=== PATIENT | female | born 1960 | race Caucasian/White ===

== ENCOUNTER 2019-03-16 10:55 | Outpatient (REF) | payer MEDICAID, SELFPAY ==
[2019-03-16 21:28] LABS: Anion Gap 8.9 mmol/L (3-11); BUN 18 mg/dL (7-18); CO2 28.1 mmol/L (21.0-32.0); Calcium 9.2 mg/dL (8.5-10.1); Chloride 102 mmol/L (98-107); Glucose 99 mg/dL (70-100); Potassium 3.8 mmol/L (3.5-5.1); Sodium 139 mmol/L (136-145)
== END 2019-03-16 11:15 ==
LOC: NCHCN 10:55
PROVIDERS: PCP Internal Medicine; Visit Provider Internal Medicine
DX: R60.9 Edema, unspecified (principal)
CPT/HCPCS: 80048

== ENCOUNTER 2019-04-30 15:17 | Outpatient (REF) | payer MEDICAID, SELFPAY ==
--- NOTE | 2019-04-30 14:30 | PAPFT_PTH ---
PATIENT: Cee Akers LOC: [facility]#:[id number] AGE/SX: 58/F ROOM: RE04/30/[address]: Aryan Villatoro : 1960 BED: DIS: 04/30/2019 SPEC #: [id number] RECD: 05/03/19 12:18 STATUS: REZA REQ #: [id number] LE: 04/30/19 14:[address]: Aryan Villatoro DEPT: [facility] Cytology RECD BY: Rhiannon Kaur Tissues: 1 - CX/ENDOCX FOR PAP SMEARS Procedures: PAP THIN PREP/[facility] Screening HPV DNA PROBE Comments: [id number] (CHLAMYDIA/GC)
[2019-05-04 15:29] LABS: Chlamydia Result Negative (Negative)
[2019-05-04 15:45] LABS: GC Result Negative (Negative)
[2019-05-10 09:38] LABS: Chlamydia Result Negative (Negative)
[2019-05-10 09:40] LABS: GC Result Negative (Negative)
== END 2019-04-30 15:37 ==
LOC: NCHCN 15:17
PROVIDERS: PCP Internal Medicine; Visit Provider Internal Medicine
DX: Z12.4 Encounter for screening for malignant neoplasm of cervix (principal); Z11.3 Encounter for screening for infections with a predominantly sexual mode of transmission; Z01.419 Encounter for gynecological examination (general) (routine) without abnormal findings
CPT/HCPCS: 87491; 87591; 88142; 87624

== ENCOUNTER 2019-12-24 13:19 | Outpatient (REF) | payer MEDICAID, SELFPAY ==
[2019-12-24 20:55] LABS: HCT 45.2 % (36.0-46.0); HGB 15.7 g/dL (12.0-15.5); Mean Corp. HGB Concentration 34.7 g/dL (32.0-36.0); Mean Corpuscular Hemoglobin 31.3 pg (27.0-33.0); Mean Corpuscular Volume 90.2 fL (80-95); Mean Platelet Volume 10.8 fL (8.0-11.0); Platelet Count 177 x1000/uL (130-400); RBC 5.01 m/cumm (4.00-5.20); RBC Distribution Width 14.2 % (11.7-14.6); White Blood Cell Count 6.83 k/cumm (4.4-10.8)
[2019-12-24 21:50] LABS: ALT 22 U/L (14-59); AST 18 U/L (15-37); Albumin 4.2 g/dL (3.4-5.0); Alkaline Phosphatase 33 U/L (46-116); Anion Gap 10.2 mmol/L (3-11); BUN 23 mg/dL (7-18); Bilirubin, Total 0.5 mg/dL (0.2-1.0); CO2 26.8 mmol/L (21.0-32.0); CREATININE 0.69 mg/dL (0.55-1.02); Calcium 9.4 mg/dL (8.5-10.1); Chloride 99 mmol/L (98-107); Glucose 106 mg/dL (74-106); Lipase 100 U/L (73-393); Potassium 3.2 mmol/L (3.5-5.1); Sodium 136 mmol/L (136-145)
== END 2019-12-24 13:39 ==
LOC: NCHCN 13:19
PROVIDERS: PCP Internal Medicine; Visit Provider Internal Medicine
DX: R11.0 Nausea (principal); R63.4 Abnormal weight loss
CPT/HCPCS: 80053; 83690; 85027

== ENCOUNTER 2019-12-27 16:06 | Outpatient (REF) | payer MEDICAID, SELFPAY ==
[2020-01-02 12:23] LABS: SARS-CoV-2 RNA Undetected (Undetected); SARS-CoV-2 Specimen Source Nasopharynx
== END 2019-12-27 16:26 ==
LOC: NCHCN 16:06
PROVIDERS: PCP Internal Medicine; Visit Provider Nurse Practitioner Family
DX: Z20.828 Contact with and (suspected) exposure to other viral communicable diseases (principal)
CPT/HCPCS: U0003

== ENCOUNTER 2020-09-28 12:53 | Outpatient (REF) | payer MEDICAID, SELFPAY ==
--- NOTE | 2020-09-29 11:50 | PAPFT_PTH ---
PATIENT: Cee Akers LOC: [facility]#:[id number] AGE/SX: 59/F ROOM: RE09/28/[address]: Aryan Villatoro : 1960 BED: DIS: 09/28/2020 SPEC #: [id number] RECD: 09/29/20 12:54 STATUS: REZA REKartik #: [id number] LE: 09/29/20 11:[address]: Aryan Villatoro DEPT: [facility] Cytology RECD BY: Ashley Sidhu Tissues: 1 - CX/ENDOCX FOR PAP SMEARS Procedures: PAP THIN PREP/UVM Screening HPV DNA PROBE Comments: [id number]
== END 2020-09-28 12:54 | disposition home or self-care (01) ==
LOC: NCHCN 12:53
PROVIDERS: PCP Internal Medicine; Visit Provider Internal Medicine
DX: Z12.4 Encounter for screening for malignant neoplasm of cervix (principal); Z01.419 Encounter for gynecological examination (general) (routine) without abnormal findings; Z00.00 Encounter for general adult medical examination without abnormal findings; Z11.51 Encounter for screening for human papillomavirus (HPV)
CPT/HCPCS: 88142; 87624

== ENCOUNTER 2020-12-04 18:34 | Outpatient (REF) | payer MEDICAID, SELFPAY ==
[2020-12-04 21:49] LABS: Anion Gap 9.9 mmol/L (3-11); BUN 15 mg/dL (7-18); CO2 29.1 mmol/L (21.0-32.0); CREATININE 0.8 mg/dL (0.55-1.02); Calcium 9.4 mg/dL (8.5-10.1); Chloride 100 mmol/L (98-107); Glucose 88 mg/dL (74-106); Potassium 3.2 mmol/L (3.5-5.1); Sodium 139 mmol/L (136-145)
== END 2020-12-04 18:35 | disposition home or self-care (01) ==
LOC: NCHCN 18:34
PROVIDERS: PCP Internal Medicine; Visit Provider Internal Medicine
DX: R60.0 Localized edema (principal); F17.200 Nicotine dependence, unspecified, uncomplicated; M54.89 Other dorsalgia
CPT/HCPCS: 80048

== ENCOUNTER 2021-03-05 15:18 | Outpatient (REF) | payer MEDICAID, SELFPAY ==
[2021-03-05 21:05] LABS: Potassium 3.5 mmol/L (3.5-5.1)
== END 2021-03-05 15:19 | disposition home or self-care (01) ==
LOC: NCHCN 15:18
PROVIDERS: PCP Internal Medicine; Visit Provider Internal Medicine
DX: F41.9 Anxiety disorder, unspecified (principal); M54.89 Other dorsalgia; Z59.9 Problem related to housing and economic circumstances, unspecified
CPT/HCPCS: 84132

== ENCOUNTER 2021-08-27 15:57 | Outpatient (REF) | payer MEDICAID, SELFPAY ==
[2021-08-27 15:12] LABS: Anion Gap 9.6 mmol/L (3-11); BUN 13 mg/dL (7-18); CO2 27.4 mmol/L (21.0-32.0); CREATININE 0.8 mg/dL (0.55-1.02); Calcium 9.3 mg/dL (8.5-10.1); Chloride 100 mmol/L (98-107); Glucose 109 mg/dL (74-106); Magnesium 2.4 mg/dL (1.8-2.4); Potassium 3.4 mmol/L (3.5-5.1); Sodium 137 mmol/L (136-145); Vitamin B12 986 pg/mL (193-986)
[2021-08-27 17:56] LABS: Creatine Kinase 48 U/L (26-192)
== END 2021-08-27 15:58 | disposition home or self-care (01) ==
LOC: NCHCN 15:57
PROVIDERS: PCP Internal Medicine; Visit Provider Internal Medicine
DX: M79.10 Myalgia, unspecified site (principal); R20.2 Paresthesia of skin
CPT/HCPCS: 80048; 82550; 82607; 83735

== ENCOUNTER 2022-10-01 15:21 | Outpatient (REF) | payer MEDICAID, SELFPAY ==
[2022-10-01 21:14] LABS: HCT 39.8 % (36.0-46.0); MCH 30.1 pg (27.0-33.0); MCHC 32.7 % (32.0-36.0); MCV 92 fL (80-95); MPV 10.4 fL (8.0-11.0); Platelet Count 193 10^3/uL (130-400); RBC 4.32 10^6/uL (3.93-5.22); RDW 13.2 % (11.7-14.6); RDW-SD 45.4 fL; WBC 3.72 10^3/uL (4.4-10.8)
[2022-10-01 21:37] LABS: ALT 32 U/L (14-59); AST 17 U/L (15-37); Alkaline Phosphatase 31 U/L (46-116); Anion Gap 9.3 mmol/L (3-11); BUN 17 mg/dL (7-18); Bilirubin, Total 0.3 mg/dL (0.2-1.0); CO2 23.7 mmol/L (21.0-32.0); CREATININE 0.9 mg/dL (0.55-1.02); Calcium 8.8 mg/dL (8.5-10.1); Chloride 109 mmol/L (98-107); Estimated GFR 73.64 (mL/min/1.73m2); Glucose 83 mg/dL (74-106); Potassium 4.2 mmol/L (3.5-5.1); Sodium 142 mmol/L (136-145); TSH (W/Ref FT4) 1.79 uIU/mL (0.36-3.74); Total Protein 6.6 g/dL (6.4-8.2)
== END 2022-10-01 15:22 | disposition home or self-care (01) ==
LOC: NCHCN 15:21
PROVIDERS: PCP Internal Medicine; Visit Provider Internal Medicine
DX: N95.1 Menopausal and female climacteric states (principal); R14.0 Abdominal distension (gaseous); F41.8 Other specified anxiety disorders
CPT/HCPCS: 80053; 85027; 84443

== ENCOUNTER 2022-12-30 13:45 | Outpatient (REF) | payer MEDICAID, SELFPAY ==
[2022-12-30 21:29] LABS: Absolute Basophil Count 0.04 10^3/uL (0.0-0.2); Absolute Eosinophil Count 0.02 10^3/uL (0.0-0.7); Absolute Lymphocyte Count 1.19 10^3/uL (1.2-3.4); Absolute Monocyte Count 0.24 10^3/uL (0.1-0.8); Absolute Neutrophil Count 1.61 10^3/uL (1.2-6.7); Basophils % 1.3; Eosinophils % 0.6; HCT 41.1 % (36.0-46.0); HGB 13.6 g/dL (11.2-15.7); Lymphocytes % 38.4; MCH 31.2 pg (27.0-33.0); MCHC 33.1 % (32.0-36.0); MCV 94 fL (80-95); MPV 10.6 fL (8.0-11.0); Monocytes % 7.7; Platelet Count 224 10^3/uL (130-400); RBC 4.36 10^6/uL (3.93-5.22); RDW 13.3 % (11.7-14.6); RDW-SD 46.7 fL
[2023-01-01 11:19] LABS: Hepatitis C Ab w Rflx HCV PCR Negative (Negative)
[2023-01-01 13:12] LABS: HIV-1/2 Ag & Ab Screen Negative (Negative)
== END 2022-12-30 13:46 | disposition home or self-care (01) ==
LOC: NCHCN 13:45
PROVIDERS: PCP Internal Medicine; Visit Provider Internal Medicine
DX: Z00.00 Encounter for general adult medical examination without abnormal findings (principal); M79.605 Pain in left leg; F41.9 Anxiety disorder, unspecified; R60.9 Edema, unspecified; R63.4 Abnormal weight loss; M54.50 Low back pain, unspecified; G89.29 Other chronic pain
CPT/HCPCS: 86803; 87389; 85025

== ENCOUNTER 2023-03-31 16:18 | Outpatient (REF) | payer MEDICAID, SELFPAY ==
[2023-03-31 16:17] LABS: HCT 38.8 % (36.0-46.0); HGB 12.4 g/dL (11.2-15.7); MCH 31.4 pg (27.0-33.0); MCV 98 fL (80-95); MPV 10.6 fL (8.0-11.0); Platelet Count 193 10^3/uL (130-400); RBC 3.95 10^6/uL (3.93-5.22); RDW 12.3 % (11.7-14.6); RDW-SD 44.7 fL; WBC 3.02 10^3/uL (4.4-10.8)
[2023-04-01 10:28] LABS: Absolute Basophil Count 0.05 10^3/uL (0.0-0.2); Absolute Eosinophil Count 0.04 10^3/uL (0.0-0.7); Absolute Lymphocyte Count 1.15 10^3/uL (1.2-3.4); Absolute Monocyte Count 0.37 10^3/uL (0.1-0.8); Absolute Neutrophil Count 1.57 10^3/uL (1.2-6.7); Basophils % 1.6; Eosinophils % 1.3; Lymphocytes % 36.2; Monocytes % 11.6; Neutrophils % 49.3
== END 2023-03-31 16:19 | disposition home or self-care (01) ==
LOC: NCHCN 16:18
PROVIDERS: PCP Internal Medicine; Visit Provider Internal Medicine
DX: M54.89 Other dorsalgia (principal); M79.605 Pain in left leg; D72.810 Lymphocytopenia
CPT/HCPCS: 85027; 85007

== ENCOUNTER 2024-07-23 21:07 | Outpatient (REF) | payer MEDICAID, SELFPAY ==
[2024-07-23 21:32] LABS: Abs Immature Grans 0.01 10^3/uL (0.0-0.06); Absolute Basophil Count 0.07 10^3/uL (0.0-0.2); Absolute Eosinophil Count 0.03 10^3/uL (0.0-0.7); Absolute Monocyte Count 0.41 10^3/uL (0.1-0.8); Absolute Neutrophil Count 3.05 10^3/uL (1.2-6.7); Basophils % 1.3 %; Eosinophils % 0.6 %; HCT 44.6 % (36.0-46.0); HGB 15.6 g/dL (11.2-15.7); Immature Grans % 0.2 %; Lymphocytes % 33.5 %; MCH 30.6 pg (27.0-33.0); MCV 88 fL (80-95); MPV 10.6 fL (8.0-11.0); Monocytes % 7.6 %; Neutrophils % 56.8 %; Platelet Count 236 10^3/uL (130-400); RBC 5.09 10^6/uL (3.93-5.22); RDW 13.5 % (11.7-14.6); RDW-SD 43.8 fL; WBC 5.37 10^3/uL (4.4-10.8)
[2024-07-23 22:10] LABS: ALT 32 U/L (14-59); AST 28 U/L (15-37); Albumin 4.7 g/dL (3.4-5.0); Alkaline Phosphatase 45 U/L (46-116); Anion Gap 8.7 mmol/L (3-11); BUN 17 mg/dL (7-18); Bilirubin, Total 0.53 mg/dL (0.2-1.0); CO2 32.3 mmol/L (21.0-32.0); CREATININE 1.1 mg/dL (0.55-1.02); Calculated LDL 170 mg/dL (<100); Chloride 92 mmol/L (98-107); Cholesterol 269 mg/dL (<200); Estimated GFR 57.17 (mL/min/1.73m2); Glucose 94 mg/dL (74-106); HDL Cholesterol 89 mg/dL (40-60); Magnesium 2.1 mg/dL (1.8-2.4); Sodium 133 mmol/L (136-145); Total Protein 7.8 g/dL (6.4-8.2); Triglyceride 52 mg/dL (<150); Vitamin D 25 Total 59.4 ng/mL (30-100)
[2024-07-23 22:16] LABS: Folate > 20.0 ng/mL (8.6-20.0); Potassium 2.7 mmol/L (3.5-5.1); Vitamin B12 > 2000 pg/mL (193-986)
[2024-07-23 22:27] LABS: Creatine Kinase 244 U/L (26-192)
--- NOTE | 2024-07-24 11:07 | NUR.NOTE ---
Accessed Pt chart to print the lab results for [facility]. Pt is in their ER now and they do not want to draw duplicate labs. Faxed to [phone]
[2024-07-26 10:36] LABS: HIV-1/2 Ag & Ab Screen Negative (Negative)
[2024-07-26 10:46] LABS: Hepatitis C Ab w Rflx HCV PCR Negative (Negative)
[2024-07-26 11:53] LABS: Syphilis Serology (RPR) Negative (Negative)
[2024-07-26 12:07] LABS: Chlamydia Result Negative (Negative); GC Result Negative (Negative)
== END 2024-07-23 21:08 | disposition home or self-care (01) ==
LOC: NCHCN 21:07
PROVIDERS: PCP Internal Medicine; Visit Provider Family Medicine
DX: Z11.3 Encounter for screening for infections with a predominantly sexual mode of transmission (principal); R25.2 Cramp and spasm; Z13.220 Encounter for screening for lipoid disorders; E46 Unspecified protein-calorie malnutrition
CPT/HCPCS: 80053; 80061; 82306; 82550; 86803; 87389; 87491; 87591; 82607; 82746; 83735; 85025; 86592

== ENCOUNTER 2024-07-26 18:10 | Outpatient (REF) | payer MEDICAID, SELFPAY ==
[2024-07-26 21:40] LABS: Anion Gap 5.6 mmol/L (3-11); BUN 21 mg/dL (7-18); CO2 31.4 mmol/L (21.0-32.0); Chloride 99 mmol/L (98-107); Creatine Kinase 249 U/L (26-192); Estimated GFR 64.09 (mL/min/1.73m2); Glucose 109 mg/dL (74-106); Potassium 3.3 mmol/L (3.5-5.1); Sodium 136 mmol/L (136-145)
== END 2024-07-26 18:11 | disposition home or self-care (01) ==
LOC: NCHCN 18:10
PROVIDERS: PCP Family Medicine; Visit Provider Family Medicine
DX: E87.6 Hypokalemia (principal)
CPT/HCPCS: 80048; 82550

== ENCOUNTER 2024-10-25 14:05 | Outpatient (REF) | payer MEDICAID, SELFPAY ==
[2024-10-25 15:35] LABS: Anion Gap 6.1 mmol/L (3-11); BUN 47 mg/dL (7-18); CO2 29.9 mmol/L (21.0-32.0); CREATININE 1.2 mg/dL (0.55-1.02); Chloride 100 mmol/L (98-107); Creatine Kinase 144 U/L (26-192); Glucose 98 mg/dL (74-106); Potassium 3.4 mmol/L (3.5-5.1); Sodium 136 mmol/L (136-145)
[2024-10-25 15:36] LABS: C-Reactive Protein < 0.50 mg/dL (<or=0.5)
[2024-10-26 15:29] LABS: ANA Interpretation Negative (Negative)
== END 2024-10-25 14:06 | disposition home or self-care (01) ==
LOC: NCHCN 14:05
PROVIDERS: PCP Family Medicine; Visit Provider Family Medicine
DX: E87.6 Hypokalemia (principal); R74.8 Abnormal levels of other serum enzymes
CPT/HCPCS: 80048; 82550; 86038; 86140

== ENCOUNTER 2024-12-25 10:31 | Emergency (ER) | payer MEDICAID, SELFPAY ==
[2024-12-25 10:42] VITALS: BP 80/50; PULSE 101; RESP 18; TEMP 36.5; O2SAT 98
--- NOTE | 2024-12-25 11:00 | DI.RAD_ITS ---
Exam(s) XR LUMBAR SPINE COMPLETE EXAM: XR LUMBAR SPINE COMPLETE CLINICAL HISTORY: fall, pain. TECHNIQUE: 2D digital imaging was performed. Five views performed upright. COMPARISON: CR LUMBAR SPINE COMPLETE from 03/10/2015 FINDINGS: BONES: No fracture or destructive lesion. Vertebral body heights are maintained. There is posterior fusion hardware extending from L3 through L5. There is again noted to be sacralization of L5. DISKS: Intervertebral disc spaces are maintained. ALIGNMENT: There is a slight dextroscoliosis centered at T12-L1. SOFT TISSUE: Normal. IMPRESSION: Stable post surgical changes. No acute abnormality. The preliminary [facility] report was reviewed. DATA REPOSITORY: RADIATION DOSE DELIVERED:
--- NOTE | 2024-12-25 11:00 | DI.RAD_ITS ---
Exam(s) XR CERVICAL SP ZAIDI TRAUMA 2-3V EXAM: XR CERVICAL SP ZAIDI TRAUMA 2-3V CLINICAL HISTORY: fall. pain. TECHNIQUE: 2D digital imaging was performed. Three views. COMPARISON: No exams were available for comparison FINDINGS: BONES: No fracture or destructive lesion. Vertebral bodies are unremarkable. DISKS: Intervertebral disc spaces are maintained. ALIGNMENT: Cervical spinal alignment is within normal limits. The odontoid and atlantoaxial articulations are normal. SOFT TISSUE: Normal. The lung apices are clear. IMPRESSION: Unremarkable radiographs of the cervical spine. The preliminary [facility] report was reviewed. DATA REPOSITORY: RADIATION DOSE DELIVERED:
[2024-12-25] MEDS: Lidocaine 5% Patch 1 PATCH TP (11:20)
--- NOTE | 2024-12-25 12:30 | W.ED.GENAD ---
Discharge Plan Disposition Patient Disposition: Eloped Discharge Details Clinical Impression: Acute on chronic back pain Primary Care Provider: Mary Pepper ED Provider: Armand Stanton Home Meds and New Rx's Prescriptions: No Action potassium chloride 10 mEq capsule, extended release 20 meq PO DAILY lidocaine HCl 3 % cream 1 applic topical QID oxycodone 10 mg tablet 10 mg PO 6X/DAY PRN sennosides [Natural Senna Laxative] 8.6 mg tablet 8.6 mg PO BID triamterene-hydrochlorothiazid 37.5-25 mg capsule 1 cap PO DAILY chlorhexidine gluconate 0.12 % mouthwash 15 ml mucous membrane DAILY triamcinolone acetonide 0.1 % cream 1 applic topical BID venlafaxine [Effexor XR] 37.5 MG capsule,extended release 24hr 37.5 mg PO DAILY clonazepam 1 MG tablet 1 mg PO HS PRN pramipexole [Mirapex] 0.25 MG tablet 0.25 mg PO HS Patient Comments: topiramate [Topamax] 50 MG tablet 100 mg PO HS Patient Comments: polyethylene glycol 3350 [Miralax] 17 GM powder in packet 17 gm PO TID PRN Patient Comments: albuterol sulfate 8.5 GM HFA aerosol inhaler 2 puff Inhalation Q6H PRN PRN Patient Comments: tretinoin 45 GM cream 45 gm Topical BID PRN oxycodone 15 MG tablet 15 mg PO Q6H PRN MDD 4 28 Days Qty: 112 acetaminophen [Mapap Extra Strength] 500 MG tablet 1 tab PO Q8H PRN PRN naloxone [Narcan] 4 MG spray,non-aerosol 4 mg NS ONCE Qty: 1 0RF Discharge Data Discharge Date/Time-TO BE ENTERED AT DEPARTURE: 12/25/24 12:37 HPI General Mode of arrival: ambulatory. Date/Time Provider Initiated Documentation: 12/25/24 10:51. Limitations to Documentation: no limitations. Information obtained by: patient, family and RN notes reviewed. History of Present Illness 63 year old F presents to the emergency department with the chief complaint of Mechanical fall with back pain and neck pain, described as moderate and similar to prior episodes, Quality is described as aching and sharp, and is localized to the neck and back. Patient started experiencing this hour(s) (10) and it has been constant. No relieving factors improve symptom(s), Movement worsens symptoms . Patient notes no other symptoms.. Patient did receive the following treatments prior to arrival, NSAID and other (And prescribed oxycodone) Related Data Home Medications ?Medication ?Instructions ?Recorded ?Confirmed albuterol sulfate 90 mcg/actuation 2 puff inhalation Q6H PRN PRN 05/13/14 12/25/24 aerosol inhaler clonazepam 1 mg tablet 1 mg PO HS PRN 05/13/14 12/25/24 polyethylene glycol 3350 17 gram 17 gm PO TID PRN 05/13/14 12/25/24 oral powder packet (Miralax) pramipexole 0.25 mg tablet 0.25 mg PO HS 05/13/14 12/25/24 (Mirapex) topiramate 50 mg tablet (Topamax) 100 mg PO HS 05/13/14 12/25/24 venlafaxine 37.5 mg 37.5 mg PO DAILY 05/13/14 12/25/24 capsule,extended release 24 hr (Effexor XR) acetaminophen 500 mg tablet (Mapap 1 tab PO Q8H PRN PRN 05/26/14 12/25/24 Extra Strength) tretinoin 0.1 % topical cream 45 gm topical BID PRN 05/26/14 12/25/24 naloxone 4 mg/actuation nasal 4 mg NS ONCE ##1 02/07/16 12/25/24 spray (Narcan) oxycodone 15 mg tablet 15 mg PO Q6H PRN 28 days #112 tabs 06/17/17 12/25/24 chlorhexidine gluconate 0.12 % 15 ml mucous membrane DAILY 06/05/22 12/25/24 mouthwash lidocaine HCl 3 % topical cream 1 applic topical QID 06/05/22 12/25/24 oxycodone 10 mg tablet 10 mg PO 6X/DAY PRN 06/05/22 12/25/24 potassium chloride 10 mEq 20 meq PO DAILY 06/05/22 12/25/24 capsule,extended release sennosides 8.6 mg tablet (Natural 8.6 mg PO BID 06/05/22 12/25/24 Senna Laxative) triamcinolone acetonide 0.1 % 1 applic topical BID 06/05/22 12/25/24 topical cream triamterene 37.5 1 cap PO DAILY 06/05/22 12/25/24 mg-hydrochlorothiazide 25 mg capsule Previous Rx's ?Medication ?Instructions ?Recorded naloxone 4 mg/actuation nasal 4 mg NS ONCE ##1 02/07/16 spray (Narcan) Allergies Allergy/AdvReac Type Severity Reaction Status Date / Time fentanyl AdvReac Unknown Agitation Unverified 12/25/24 10:48 morphine sulfate (From MS AdvReac Nausea Unverified 12/25/24 10:48 Contin) General Stated Complaint: Fall/Non TraumaCriteria HILTON: 4 Review of Systems Constitutional Constitutional: Denies headache(s) and Denies weakness ENT Ears, Nose, Mouth, and Throat: Denies headache(s) and Reports neck pain Cardiovascular Cardiovascular: Denies chest pain, Denies syncope and Denies dyspnea Respiratory Respiratory: Denies dyspnea Gastrointestinal Gastrointestinal: Denies abdominal pain Musculoskeletal Musculoskeletal: Reports as per HPI, Reports back pain, Reports myalgias and Reports neck pain Neurologic Neurologic: Denies syncope, Denies headache(s) and Denies weakness Exam Const General: cooperative Orientation: alert, awake and oriented x3 Neck Neck: normal visual inspection, full ROM and no meningeal signs Resp Effort & Inspection: normal respiratory effort Auscultation: clear to auscultation bilaterally Cardio Rate: regular rate Rhythm: regular rhythm Heart Sounds: S1 normal and S2 normal Back/Spine/Pelvis Cervical Spine: normal cervical lordosis, cervical ROM normal, cervical muscular tenderness, No cervical spinal tenderness and other (Diffuse nonfocal tenderness) Thoracic/Lumbar Spine: thoracic and lumbar spine normal to inspection, surgical scar(s) present, pain with thoraco-lumbar ROM, thoraco-lumbar ROM limited and other (Diffuse nonfocal tenderness) Pelvis: no pain with anterior-posterior compression and no pain with lateral compression Neuro General: patient alert, patient awake and patient oriented x3 Course Vital Signs Vital signs: Vital Signs Temperature 36.5 C 12/25/24 10:42 Pulse 101 H 12/25/24 10:42 Respiratory Rate 18 12/25/24 10:42 Blood Pressure 80/50 L 12/25/24 10:42 Pulse Oximetry 98 12/25/24 10:42 Temperature 36.5 C 12/25/24 10:42 Temperature Source Oral 12/25/24 10:42 Pulse 101 H 12/25/24 10:42 Respiratory Rate 18 12/25/24 10:42 Blood Pressure 80/50 L 12/25/24 10:42 Pulse Oximetry 98 12/25/24 10:42 Oxygen Delivery Method Room Air 12/25/24 10:42 Oxygen Flow Rate 0 12/25/24 10:42 Pain Level 7 12/25/24 10:42 Medical Decision Making Patient presenting to the emergency department for chief complaint of mechanical fall with injury to low back and some neck pain but she denies any neck injury. Patient has significant past medical history of chronic pain, substance abuse disorder, complex regional pain syndrome, bipolar, and surgery of lumbar spine. Patient already prescribed oxycodone and took NSAIDs this morning with her pain medication. Patient denies any change in bowel or bladder function numbness tingling or inability to ambulate. Physical exam shows diffuse tenderness to lumbar region without point tenderness same thing with C-spine. No markings to suggest trauma no bruising ecchymosis erythema or other findings noted. Given patient's surgical history we will perform radiological imaging and given that she has taken narcotics and NSAIDs prior to arrival we will give lidocaine patch pending results Pending imaging results patient eloped and stated to staff that she did not want a wait for results. She was ambulatory and weightbearing at time of leaving. Did review radiological imaging that showed no acute findings for C-spine or lumbar spine. PFSH All Active Problems (Updated 12/25/24 @ 15:17 by Armand Stanton NP) Acute on chronic back pain (Acute) Chronic pain (Chronic 10/23/16) Anxiety (Chronic 09/02/16) Medical History (Updated 12/25/24 @ 15:17 by Armand Stanton NP) Depression Surgical History (Updated 04/01/18 @ 14:33 by Elastifile [place]) Abdominal hysterectomy Social History Smoking/Tobacco Use Status: Never Smoking risk assessment performed?: Yes Alcohol Intake: never Drug use: Never Housing: apartment Do you feel safe at home: Yes Do you feel safe in your relationship?: Yes
--- NOTE | 2024-12-25 12:49 | DI.[facility]_ITS ---
PROCEDURE INFORMATION: Exam: XR Cervical Spine Exam date and time: 12/25/2024 11:28 AM Age: 63 years old Clinical indication: Injury or trauma; Fall; Other: Neck pain TECHNIQUE: Imaging protocol: Radiologic exam of the cervical spine. Views: 2 or 3 views. COMPARISON: No relevant prior studies available. FINDINGS: Bones/joints: Normal. No acute fracture. Normal alignment. Soft tissues: Unremarkable. IMPRESSION: No acute findings. Dictated and Authenticated by: Tone Fleming MD. Orderin Romy Acuna MD
--- NOTE | 2024-12-25 12:50 | DI.[facility]AD_ITS ---
PROCEDURE INFORMATION: Exam: XR Lumbosacral Spine Exam date and time: 12/25/2024 11:33 AM Age: 63 years old Clinical indication: Injury or trauma; Fall; Other: Lower back pain; Prior surgery; Surgery date: 6+ months; Surgery type: Surgery 10 years ago in lumbar spine TECHNIQUE: Imaging protocol: Radiologic exam of the lumbosacral spine. Views: 4 or 5 views. COMPARISON: MRI-SPINAL LUMBAR WITHOUT CONTRAST 12/27/2020 1:39 PM FINDINGS: Bones/joints: Posterolateral fusion hardware L4 through S1. Alignment of the lumbar spine is normal. No acute fractures. Soft tissues: Unremarkable. IMPRESSION: No acute findings. Dictated and Authenticated by: Tone Fleming MD. Orderin Romy Acuna MD
== END 2024-12-25 12:37 | disposition left against medical advice (07) ==
LOC: ER 12:06
PROVIDERS: Emergency Provider Nurse Practitioner Family; PCP Family Medicine
DX: M54.50 Low back pain, unspecified (principal); G89.29 Other chronic pain; Z53.29 Procedure and treatment not carried out because of patient's decision for other reasons
CPT/HCPCS: 99283; 72040; 72110

== ENCOUNTER 2025-02-11 15:30 | Outpatient (REF) | payer MEDICAID, SELFPAY ==
[2025-02-11 21:09] LABS: Anion Gap 10.7 mmol/L (3-11); BUN 34 mg/dL (7-18); CO2 31.3 mmol/L (21.0-32.0); Calcium 9.2 mg/dL (8.5-10.1); Chloride 96 mmol/L (98-107); Estimated GFR 72.28 (mL/min/1.73m2); Glucose 98 mg/dL (74-106); Sodium 138 mmol/L (136-145)
[2025-02-11 21:15] LABS: Potassium 2.7 mmol/L (3.5-5.1)
[2025-02-14 09:57] LABS: Hepatitis C Ab w Rflx HCV PCR Negative (Negative)
[2025-02-14 10:24] LABS: HIV-1/2 Ag & Ab Screen Negative (Negative)
[2025-02-14 10:35] LABS: Syphilis Serology (RPR) Negative (Negative)
[2025-02-14 12:05] LABS: Chlamydia Result Negative (Negative); GC Result Negative (Negative)
== END 2025-02-11 15:31 | disposition home or self-care (01) ==
LOC: NCHCN 15:30
PROVIDERS: PCP Family Medicine; Visit Provider Family Medicine
DX: R79.89 Other specified abnormal findings of blood chemistry (principal); T74.21XA Adult sexual abuse, confirmed, initial encounter
CPT/HCPCS: 80048; 86803; 87389; 87491; 87591; 86592

== ENCOUNTER 2025-02-16 15:20 | Outpatient (REF) | payer MEDICAID, SELFPAY ==
[2025-02-16 21:17] LABS: Anion Gap 5.3 mmol/L (3-11); BUN 31 mg/dL (7-18); CO2 32.7 mmol/L (21.0-32.0); Calcium 9.5 mg/dL (8.5-10.1); Chloride 100 mmol/L (98-107); Estimated GFR 83.26 (mL/min/1.73m2); Glucose 89 mg/dL (74-106); Magnesium 2.8 mg/dL (1.8-2.4); Potassium 4.3 mmol/L (3.5-5.1); Sodium 138 mmol/L (136-145)
== END 2025-02-16 15:21 | disposition home or self-care (01) ==
LOC: NCHCN 15:20
PROVIDERS: PCP Family Medicine; Visit Provider Family Medicine
DX: R79.89 Other specified abnormal findings of blood chemistry (principal); M79.18 Myalgia, other site
CPT/HCPCS: 80048; 83735

== ENCOUNTER → 2025-04-20 02:30 | Outpatient (CLI) | payer MEDICAID, SELFPAY ==
--- NOTE | 2025-04-20 10:56 | DI.RAD_ITS ---
Exam(s) XR HIP PELVIS ADULT BL EXAM: XR HIP PELVIS ADULT BL CLINICAL HISTORY: LT GROIN PAIN,R10.32. TECHNIQUE: 2D digital imaging was performed. COMPARISON: No exams were available for comparison FINDINGS: Five views No evidence of pelvic nor hip fracture and no hip joint space narrowing nor osteophytes. Bone density is age-appropriate. No osseous lesions. Pubic rami unremarkable there is posterior fusion hardware in the partially visualized lumbar spine as well as laminectomies. IMPRESSION: No significant osseous findings in the hips. DATA REPOSITORY: RADIATION DOSE DELIVERED:
== END ==
LOC: DI 02:30
PROVIDERS: PCP Family Medicine; Visit Provider Family Medicine
DX: R10.32 Left lower quadrant pain (principal)
CPT/HCPCS: 73521